=== PATIENT | male | born 1985 | race Hispanic/Latino ===

== ENCOUNTER → 2018-12-04 | Outpatient (CLI) | payer OTHER ==
--- NOTE | 2018-12-04 10:32 | Diagnostic Imaging Report ---
EXAM: US LIVER DATE: 12/04/2018 9:41 AM Time stamp on exam: INDICATION: Abnormal liver function tests COMPARISON: None TECHNIQUE: Transverse and longitudinal gomes scale and color doppler sonographic images of the upper abdomen were obtained. FINDINGS: LIVER 15.4 cm in the right midclavicular line. Increased echogenicity, normal contour, no masses. GALLBLADDER No stones, sludge, wall-thickening or pericholecystic fluid. Negative sonographic Leos's sign. BILE DUCTS No intra nor extra-hepatic biliary dilation. Common bile duct measures 0.3 cm PANCREAS: Visualized portions are normal. RIGHT KIDNEY: 12.1 cm Echogenicity: Normal Collecting System: No hydronephrosis Stones: None Cyst/Mass: None VESSELS: Aorta: Nonaneurysmal Inferior Vena Cava: Patent Main Portal Vein: 1.2 cm, normal size with hepatopetal flow. FREE FLUID: None IMPRESSION: Increased hepatic parenchymal echogenicity compatible with steatosis. Unremarkable sonographic appearance of the gallbladder. Signed by: Dr. Gagan Ceron M.D. on 12/04/2018 10:29 AM
== END ==
LOC: US 09:30
PROVIDERS: ATTEND Internal Medicine Gastroenterology
DX: R94.5 Abnormal results of liver function studies (principal); R74.8 Abnormal levels of other serum enzymes
CPT/HCPCS: 76705